=== PATIENT | female | born 1965 | race Caucasian/White ===

== ENCOUNTER 2016-06-18 12:01 | Emergency (ER) | payer OTHER ==
[~2016-06-18] VITALS: Ht 152.4 cm; Wt 81.8 kg
[~2016-06-18 12:01] MED LIST: ASPI-556 PO; ATOR20TA86 PO; GABA-529 PO; Hydrocodone Bit/Acetaminophen PO; LINA5TAB PO; LISI-661 PO; MAGN250T PO; METF500T4 PO; PIOG30TA2 PO
[2016-06-18] MEDS ORDERED: EMPA10TA PO (12:34)
[2016-06-18 12:36] LABS: GLUCOSE,POINT OF CARE 113 MG/DL (70-110)
[2016-06-18] MEDS ORDERED: SODIUM CHLORIDE 0.9% 1,000 ML IV ONE (14:15)
[2016-06-18 14:30] LABS: BASOPHILS # (AUTO) 0.13 K/uL (0.00-0.20); BASOPHILS % (AUTO) 1.4 % (0.0-2.0); EOSINOPHILS # (AUTO) 0.12 K/uL (0.00-0.70); EOSINOPHILS % (AUTO) 1.27 % (1.0-6.0); HEMATOCRIT 50.5 % (36-46); HEMOGLOBIN 16.5 g/dL (12.0-16.0); LYMPHOCYTES # (AUTO) 2.4 K/uL (1.0-4.8); LYMPHOCYTES % (AUTO) 25.7 % (22.0-44.0); MEAN CORPUSCULAR HGB CONC 32.7 G/dL (31.0-37.0); MEAN CORPUSCULAR VOLUME 92 fL (80-100); MONOCYTES # (AUTO) 0.5 K/uL (0.1-1.0); MONOCYTES % (AUTO) 5.8 % (2.0-9.0); NEUTROPHILS # (AUTO) 6.1 K/uL (1.8-7.7); NEUTROPHILS % (AUTO) 65.8 % (40.0-70.0); PLATELET COUNT (AUTO) 252 K/uL (150-450); RED BLOOD CELL COUNT(AUTO) 5.51 MIL/uL (4.00-5.20); RED CELL DISTRIBUTION WIDTH 14.4 % (11.5-14.5); WHITE BLOOD COUNT (AUTO) 9.3 K/uL (4.5-11.0)
[2016-06-18 14:38] LABS: INR 1.1 (0.9-1.1); PROTHROMBIN TIME 11.3 SEC (9.4-11.6)
[2016-06-18 14:41] LABS: ANION GAP 5 mmol/L (8-16); CALCIUM, TOTAL 9.5 mg/dL (8.8-10.5); CARBON DIOXIDE 36 mmol/L (22-29); CHLORIDE 99 mmol/L (98-107); GLOMERULAR FILTR. RATE CALC > 60 mL/min (>60); POTASSIUM 4.2 mmol/L (3.5-5.1); SODIUM SERUM 140 mmol/L (136-145); UREA NITROGEN, BLOOD 10 mg/dL (7-18)
[2016-06-18 14:47] LABS: ALANINE AMINOTRANSFERASE 17 U/L (12-78); ALBUMIN 3.2 g/dL (3.4-5.0); ASPARTATE AMINOTRANSFERASE 19 U/L (15-37); BILIRUBIN,TOTAL 0.4 mg/dL (0.1-1.0); TOTAL PROTEIN, SERUM 7.6 g/dL (6.4-8.2)
[2016-06-18 16:11] VITALS: BP 139/73
== END 2016-06-18 16:14 | disposition home or self-care (01) ==
LOC: EMS 12:03
DX: J40 Bronchitis, not specified as acute or chronic (principal); E11.9 Type 2 diabetes mellitus without complications; I10 Essential (primary) hypertension; E78.00 Pure hypercholesterolemia, unspecified; F17.200 Nicotine dependence, unspecified, uncomplicated; Z79.82 Long term (current) use of aspirin
CPT/HCPCS: 36415; 71020; 80053; 82962; 83690; 84484; 85025; 85610; 93005; 99285; J7030

== ENCOUNTER 2016-08-25 19:34 | Inpatient (IN) | payer OTHER ==
[~2016-08-25] VITALS: Ht 152.4 cm; Wt 88.0 kg
[~2016-08-25 19:34] MED LIST changes: +EMPA10TA PO; -GABA-529 PO; -Hydrocodone Bit/Acetaminophen PO
[2016-08-25 19:51] LABS: GLUCOSE COMMENT 1 Doctor Notified; GLUCOSE,POINT OF CARE 104 MG/DL (70-110)
[2016-08-25 20:14] LABS: EOSINOPHILS # (AUTO) 0.15 K/uL (0.00-0.70); EOSINOPHILS % (AUTO) 1.49 % (1.0-6.0); HEMATOCRIT 48.7 % (36-46); HEMOGLOBIN 15.2 g/dL (12.0-16.0); LYMPHOCYTES # (AUTO) 2.4 K/uL (1.0-4.8); LYMPHOCYTES % (AUTO) 24.6 % (22.0-44.0); MEAN CORPUSCULAR HGB CONC 31.3 G/dL (31.0-37.0); MEAN CORPUSCULAR VOLUME 93 fL (80-100); MONOCYTES # (AUTO) 0.7 K/uL (0.1-1.0); MONOCYTES % (AUTO) 7.4 % (2.0-9.0); NEUTROPHILS # (AUTO) 6.5 K/uL (1.8-7.7); NEUTROPHILS % (AUTO) 65.5 % (40.0-70.0); PLATELET COUNT (AUTO) 194 K/uL (150-450); RED BLOOD CELL COUNT(AUTO) 5.24 MIL/uL (4.00-5.20); RED CELL DISTRIBUTION WIDTH 16.7 % (11.5-14.5); WHITE BLOOD COUNT (AUTO) 9.9 K/uL (4.5-11.0)
[2016-08-25] MEDS ORDERED: FUROSEMIDE 40 MG/4 ML VIAL IVP ONE (20:15)
[2016-08-25] MEDS ORDERED: NITROGLYCERIN 2% (1 GM=INCH) PACKET TP ONE (20:15)
[2016-08-25 20:23] LABS: ANION GAP 4 mmol/L (8-16); CALCIUM, TOTAL 8.8 mg/dL (8.8-10.5); CARBON DIOXIDE 34 mmol/L (22-29); CHLORIDE 105 mmol/L (98-107); CREATININE 0.54 mg/dL (0.60-1.30); GLOMERULAR FILTR. RATE CALC > 60 mL/min (>60); SODIUM SERUM 143 mmol/L (136-145); UREA NITROGEN, BLOOD 17 mg/dL (7-18)
[2016-08-25 20:31] LABS: INR 1.1 (0.9-1.1); PROTHROMBIN TIME 11.4 SEC (9.4-11.6)
[2016-08-25 20:37] LABS: B-TYPE NATRIURETIC PEPTIDE 35 pg/mL (0-100)
[2016-08-25 20:47] LABS: ALANINE AMINOTRANSFERASE 21 U/L (12-78); ASPARTATE AMINOTRANSFERASE 23 U/L (15-37); BILIRUBIN,TOTAL 0.5 mg/dL (0.1-1.0); CREATINE KINASE MB 0.9 ng/mL (0-5); CREATINE KINASE, TOTAL 128 U/L (26-192); TOTAL PROTEIN, SERUM 7.1 g/dL (6.4-8.2)
[2016-08-25 21:21] LABS: APPEARANCE,URINE CLEAR (CLEAR); GLUCOSE, URINE (UA) >=1000 mg/dL (NEGATIVE); KETONES,URINE NEGATIVE (NEGATIVE); LEUKOCYTE ESTERASE ,URINE NEGATIVE (NEGATIVE); OCCULT BLOOD,URINE NEGATIVE (NEGATIVE); PH,URINE 5.5 (5.0-8.0); PROTEIN,URINE SEE CONFIRM (NEGATIVE)
[2016-08-25 22:04] LABS: ADD UA MICROSCOPIC YES
[2016-08-25 22:05] LABS: RBC,URINE 0-2 /HPF (0-2); SQUAMOUS EPITHELIAL CELL,UR Few /LPF (None Seen); SULFOSALICYLIC ACID,URINE 2+ (Negative)
[2016-08-26] VITALS (7 sets, daily range): BP systolic 108–129; BP diastolic 51–78
[2016-08-26] MEDS ORDERED: ZOLPIDEM TARTRATE 10 MG TABLET PO PRN (01:15)
[2016-08-26] MEDS ORDERED: ACETAMINOPHEN 325 MG TABLET PO PRN (01:15)
[2016-08-26] MEDS ORDERED: DEXTROSE 50%-WATER 25 GM/50 ML SYRINGE IVP PRN (01:15)
[2016-08-26] MEDS ORDERED: MORPHINE SULFATE 2 MG/ML SYRINGE IVP PRN (01:15)
[2016-08-26] MEDS ORDERED: ONDANSETRON HCL 4 MG/2 ML VIAL IVP PRN (01:15)
[2016-08-26] MEDS ORDERED: IPRATROPIUM BROMIDE 0.5 MG/2.5 ML NEB SOLUTION NEB PRN (01:15)
[2016-08-26] MEDS ORDERED: HYDROCODONE/ACETAMINOPHEN 5-325 MG TABLET PO PRN (01:15)
[2016-08-26] MEDS ORDERED: MAGNESIUM SULFATE 4 GM/WATER 100 ML IV PRN (01:30)
[2016-08-26] MEDS ORDERED: POTASSIUM CHLORIDE 20 MEQ ER TABLET PO PRN (01:30)
[2016-08-26] MEDS ORDERED: MAGNESIUM SULFATE 2 GM in DEXTROSE 5%-WATER 50 ML IV PRN (01:30)
[2016-08-26] MEDS ORDERED: MAGNESIUM OXIDE 400 MG TABLET PO PRN (01:30)
[2016-08-26 06:24] LABS: ALBUMIN 2.8 g/dL (3.4-5.0); CHOL/HDL RATIO 2.8 (3.9-5.7)
[2016-08-26] MEDS: NITROGLYCERIN 2% (1 GM=INCH) PACKET TP SCH ×3 (06:28→17:17)
[2016-08-26] MEDS: DOCUSATE SODIUM 100 MG CAPSULE PO SCH ×2 (08:37→20:35)
[2016-08-26] MEDS: PANTOPRAZOLE SODIUM 40 MG/VIAL IVP SCH (08:37)
[2016-08-26] MEDS: LinaGLIPtin 5 MG TABLET PO SCH (08:37)
[2016-08-26] MEDS: LISINOPRIL 10 MG TABLET PO SCH (08:37)
[2016-08-26] MEDS: PIOGLITAZONE HCL 30 MG TABLET PO SCH (08:37)
[2016-08-26] MEDS: ASPIRIN 81 MG CHEWABLE TABLET PO SCH (08:38)
[2016-08-26] MEDS: FUROSEMIDE 40 MG/4 ML VIAL IVP SCH (08:38)
[2016-08-26] MEDS ORDERED: [UNRECOGNIZED DRUG - OTHER] PO SCH (09:00)
[2016-08-26] MEDS: HEPARIN SODIUM,PORCINE 5,000 UNITS/ML VIAL SQ SCH (17:08)
[2016-08-26] MEDS: INSULIN ASPART 100 UNITS/ML SQ PRN ×2 (17:19→22:02)
[2016-08-26] MEDS: ATORVASTATIN CALCIUM 20 MG TABLET PO SCH (20:35)
[2016-08-26] MEDS: MAGNESIUM HYDROXIDE SUSPENSION 30 ML UDCUP PO PRN (20:35)
[2016-08-27] MEDS: HEPARIN SODIUM,PORCINE 5,000 UNITS/ML VIAL SQ SCH ×4 (00:28→23:42)
[2016-08-27] MEDS: NITROGLYCERIN 2% (1 GM=INCH) PACKET TP SCH ×5 (00:28→23:42)
[2016-08-27 05:02] VITALS: BP 121/73
[2016-08-27 07:27] VITALS: BP 120/65
[2016-08-27] MEDS: ASPIRIN 81 MG CHEWABLE TABLET PO SCH (08:00)
[2016-08-27] MEDS: DOCUSATE SODIUM 100 MG CAPSULE PO SCH ×2 (08:00→20:23)
[2016-08-27] MEDS: PANTOPRAZOLE SODIUM 40 MG/VIAL IVP SCH (08:00)
[2016-08-27] MEDS: PIOGLITAZONE HCL 30 MG TABLET PO SCH (08:01)
[2016-08-27] MEDS: LinaGLIPtin 5 MG TABLET PO SCH (08:01)
[2016-08-27] MEDS: LISINOPRIL 10 MG TABLET PO SCH (08:01)
[2016-08-27] MEDS ORDERED: NICOTINE 14 MG/24 HOUR PATCH TD SCH (09:00)
[2016-08-27 10:48] VITALS: BP 103/57
[2016-08-27] MEDS: INSULIN ASPART 100 UNITS/ML SQ PRN ×3 (12:30→21:17)
[2016-08-27] MEDS ORDERED: SODIUM CHLORIDE 0.9% 500 ML IV ONE (15:11)
[2016-08-27 15:14] VITALS: BP 113/62
[2016-08-27] MEDS: CefTRIAXone 1 GM/DEXTROSE 50 ML IV SCH (15:21)
[2016-08-27 20:01] VITALS: BP 105/62
[2016-08-27] MEDS: ATORVASTATIN CALCIUM 20 MG TABLET PO SCH (20:23)
[2016-08-27] MEDS: MAGNESIUM HYDROXIDE SUSPENSION 30 ML UDCUP PO PRN (20:23)
[2016-08-27 23:47] VITALS: BP 119/70
[2016-08-28 05:37] VITALS: BP 125/70
[2016-08-28] MEDS: NITROGLYCERIN 2% (1 GM=INCH) PACKET TP SCH ×4 (06:36→23:19)
[2016-08-28 07:22] VITALS: BP 113/59
[2016-08-28] MEDS: FUROSEMIDE 40 MG/4 ML VIAL IVP SCH (08:12)
[2016-08-28] MEDS: DOCUSATE SODIUM 100 MG CAPSULE PO SCH ×2 (08:12→20:31)
[2016-08-28] MEDS: ASPIRIN 81 MG CHEWABLE TABLET PO SCH (08:12)
[2016-08-28] MEDS: LISINOPRIL 10 MG TABLET PO SCH (08:13)
[2016-08-28] MEDS: HEPARIN SODIUM,PORCINE 5,000 UNITS/ML VIAL SQ SCH ×3 (08:13→23:23)
[2016-08-28] MEDS: PANTOPRAZOLE SODIUM 40 MG/VIAL IVP SCH (08:13)
[2016-08-28] MEDS: LinaGLIPtin 5 MG TABLET PO SCH (08:13)
[2016-08-28] MEDS: PIOGLITAZONE HCL 30 MG TABLET PO SCH (08:13)
[2016-08-28 11:20] VITALS: BP 114/66
[2016-08-28] MEDS: CefTRIAXone 1 GM/DEXTROSE 50 ML IV SCH (14:30)
[2016-08-28 15:12] VITALS: BP 129/71
[2016-08-28] MEDS: INSULIN ASPART 100 UNITS/ML SQ PRN (17:19)
[2016-08-28 19:36] VITALS: BP 110/67
[2016-08-28] MEDS: ATORVASTATIN CALCIUM 20 MG TABLET PO SCH (20:31)
[2016-08-28] MEDS ORDERED: BISACODYL 10 MG RECTAL RECTAL SUPPOSITORY PR PRN (21:00)
[2016-08-28 23:12] VITALS: BP 116/73
[2016-08-29 04:05] VITALS: BP 128/68
[2016-08-29 04:38] LABS: GLUCOSE,POINT OF CARE 128 MG/DL (70-110)
[2016-08-29 04:38] LABS: GLUCOSE,POINT OF CARE 173 MG/DL (70-110)
[2016-08-29 04:38] LABS: GLUCOSE COMMENT 1 Received Meds; GLUCOSE,POINT OF CARE 204 MG/DL (70-110)
[2016-08-29 04:38] LABS: GLUCOSE,POINT OF CARE 114 MG/DL (70-110)
[2016-08-29 04:38] LABS: GLUCOSE,POINT OF CARE 114 MG/DL (70-110)
[2016-08-29 04:42] LABS: GLUCOSE,POINT OF CARE 127 MG/DL (70-110)
[2016-08-29 04:42] LABS: GLUCOSE COMMENT 1 Received Meds; GLUCOSE,POINT OF CARE 171 MG/DL (70-110)
[2016-08-29 04:42] LABS: GLUCOSE,POINT OF CARE 137 MG/DL (70-110)
[2016-08-29] MEDS: NITROGLYCERIN 2% (1 GM=INCH) PACKET TP SCH ×3 (05:52→17:54)
[2016-08-29 07:22] VITALS: BP 124/76
[2016-08-29] MEDS: PANTOPRAZOLE SODIUM 40 MG/VIAL IVP SCH (08:02)
[2016-08-29] MEDS: HEPARIN SODIUM,PORCINE 5,000 UNITS/ML VIAL SQ SCH ×2 (08:02→15:58)
[2016-08-29 08:45] VITALS: BP 147/79
[2016-08-29] MEDS ORDERED: DOBUTamine HCL/D5W 500 MG/250 ML IV BAG [STRESS LAB ONLY] IV ONE ×2 (09:20→16:32)
[2016-08-29 09:49] VITALS: BP 132/70
[2016-08-29 11:21] VITALS: BP 122/71
[2016-08-29] MEDS: LinaGLIPtin 5 MG TABLET PO SCH (11:31)
[2016-08-29] MEDS: PIOGLITAZONE HCL 30 MG TABLET PO SCH (11:31)
[2016-08-29] MEDS: DOCUSATE SODIUM 100 MG CAPSULE PO SCH (11:31)
[2016-08-29] MEDS: LISINOPRIL 10 MG TABLET PO SCH (11:31)
[2016-08-29] MEDS: ASPIRIN 81 MG CHEWABLE TABLET PO SCH (11:31)
[2016-08-29 15:26] VITALS: BP 111/56
[2016-08-29] MEDS ORDERED: DSS100 PO (17:35)
[2016-08-29] MEDS ORDERED: FURO40 PO (17:36)
[2016-08-29] MEDS ORDERED: LEVO500 PO (17:37)
[2016-08-29] MEDS: INSULIN ASPART 100 UNITS/ML SQ PRN (18:03)
[2016-08-30] MEDS ORDERED: LEVOFLOXACIN 500 MG TABLET PO SCH (09:00)
[2016-09-02 20:17] LABS: GLUCOSE COMMENT 1 Received Meds; GLUCOSE,POINT OF CARE 175 MG/DL (70-110)
[2016-09-09 16:48] LABS: GLUCOSE,POINT OF CARE 114 MG/DL (70-110)
[2016-09-09 16:48] LABS: GLUCOSE COMMENT 1 Received Meds; GLUCOSE,POINT OF CARE 147 MG/DL (70-110)
[2016-09-09 16:48] LABS: GLUCOSE COMMENT 1 Received Meds; GLUCOSE,POINT OF CARE 164 MG/DL (70-110)
[2016-09-09 16:48] LABS: GLUCOSE COMMENT 1 Received Meds; GLUCOSE,POINT OF CARE 190 MG/DL (70-110)
[2016-09-09 16:53] LABS: GLUCOSE,POINT OF CARE 132 MG/DL (70-110)
[2016-09-09 16:53] LABS: GLUCOSE COMMENT 1 Received Meds; GLUCOSE,POINT OF CARE 120 MG/DL (70-110)
[2016-09-09 16:53] LABS: GLUCOSE,POINT OF CARE 140 MG/DL (70-110)
== END 2016-08-29 18:15 | disposition home or self-care (01) | DRG 194 ==
LOC: EMS 19:36 → 5S 23:30
PROVIDERS: ADMIT Hospitalist; ATTEND Hospitalist
DX: I11.0 Hypertensive heart disease with heart failure (principal); I31.3 Pericardial effusion (noninflammatory); I42.9 Cardiomyopathy, unspecified; I50.21 Acute systolic (congestive) heart failure; R07.89 Other chest pain; E78.00 Pure hypercholesterolemia, unspecified; E78.5 Hyperlipidemia, unspecified; F17.210 Nicotine dependence, cigarettes, uncomplicated; R60.9 Edema, unspecified; Z79.84 Long term (current) use of oral hypoglycemic drugs; E11.40 Type 2 diabetes mellitus with diabetic neuropathy, unspecified; Z71.6 Tobacco abuse counseling; Z79.82 Long term (current) use of aspirin; Z91.11 Patient's noncompliance with dietary regimen; Z79.899 Other long term (current) drug therapy
CPT/HCPCS: 82962; 83735; 87086; 93005; 93017; 93306; 93350; 93971; 96374; 99285; C9113; J0696; J1250; J1644; J1940; J7040